=== PATIENT | female | born 1985 | race American Indian/Alaskan Native ===

== ENCOUNTER 2019-10-08 13:42 | Emergency (ER) | payer SELFPAY | END 2019-10-08 15:00 | disposition left against medical advice (07) | LOC: ED 13:42 | DX: R50.9 Fever, unspecified (principal); R51 Headache; Z53.21 Procedure and treatment not carried out due to patient leaving prior to being seen by health care provider ==

== ENCOUNTER 2021-01-27 13:11 | Outpatient (CLI) | payer MEDICAID ==
--- NOTE | 2021-01-27 14:43 | XRay Report ---
Lumbar spine series INDICATION: Back pain FINDINGS: Mild curvature the alignment. No compression fractures seen. Sacrum and sacroiliac joints a ppear normal. No subluxation. IMPRESSION: No acute findings. Cervical spine series INDICATION: Neck pain FINDINGS: Alignment appears normal. Odontoid appears normal. Facets are well aligned throughout. IMPRESSION: No acute findings. Signer Name: Andrew Frederick MD Signed: 01/27/2021 2:29 PM Workstation Name: [id number]
--- NOTE | 2021-01-27 14:43 | XRay Report ---
Lumbar spine series INDICATION: Back pain FINDINGS: Mild curvature the alignment. No compression fractures seen. Sacrum and sacroiliac joints a ppear normal. No subluxation. IMPRESSION: No acute findings. Cervical spine series INDICATION: Neck pain FINDINGS: Alignment appears normal. Odontoid appears normal. Facets are well aligned throughout. IMPRESSION: No acute findings. Signer Name: Andrew Frederick MD Signed: 01/27/2021 2:29 PM Workstation Name: [id number]
== END 2021-01-27 13:12 | disposition home or self-care (01) ==
LOC: XRAY 13:11
PROVIDERS: ATTEND Orthopaedic Surgery
DX: M54.2 Cervicalgia (principal); M47.816 Spondylosis without myelopathy or radiculopathy, lumbar region
CPT/HCPCS: 72050; 72110